=== PATIENT | male | born 1985 | race African-American/Black ===

== ENCOUNTER 2020-02-26 07:04 | Outpatient (NON) | payer OTHER, SELFPAY ==
[2020-02-26 18:37] LABS: SARS-CoV-2 RNA PCR Negative
== END 2020-02-26 07:05 ==
PROVIDERS: PCP Emergency Medicine; Visit Provider Emergency Medicine
DX: Z20.828 Contact with and (suspected) exposure to other viral communicable diseases (principal)
CPT/HCPCS: 87635; C9803; U0003

== ENCOUNTER 2020-10-29 00:54 | Emergency (ER) | payer OTHER, SELFPAY ==
[2020-10-29 01:02] VITALS: BP 168/112; PULSE 83; RESP 20; TEMP 37.2; O2SAT 98
--- NOTE | 2020-10-29 01:06 | ED.DENTAL ---
HPI - Dental/Oral General Chief complaint: Dental/Oral Stated complaint: tooth pain Time Seen by Provider: 10/29/20 00:56 Source: patient Mode of arrival: ambulatory Limitations: no limitations History of Present Illness HPI Narrative: This is a 35 year old male that presents to the ER for toothache x 2 days. Reports he recently had a root canal. Reports now the tooth next to the one that had the root canal is bothering him. He has been taking prescribed pain medication from the Dentist with little relief. Also reports he has been taking Amoxicillin as prescribed for the last couple of days. Reports redness and swelling in the area. Denies fever, dyspnea, or difficulty swallowing. MD Complaint: tooth pain Location: Tooth # (18) Related Data Allergies Allergy/AdvReac Type Severity Reaction Status Date / Time No Known Allergies Allergy Verified 07/28/19 11:42 Review of Systems Review of Systems: Narrative: CONSTITUTIONAL: Denies fever ENT: Reports dentalgia All systems reviewed & are unremarkable except as noted in HPI and below PMFSH Past Medical History Medical History (Updated 10/29/20 @ 01:29 by Chanel Ferris PA-C) HTN (hypertension) Inguinal hernia Surgical History Surgical History (Updated 07/28/19 @ 12:21 by Ezequiel Tate) Hx of foot surgery Hx of inguinal hernia repair Hx of shoulder surgery Hx of thumb surgery rt thumb Social History Social History (Updated 07/28/19 @ 12:21 by Ezequiel Tate) Smoking status: Never smoker Exam Narrative: Exam Narrative: GENERAL: Well-appearing, well-nourished, and in no acute distress. HEAD: Normocephalic, atraumatic. EYES: EOMI. ENT: Mucous membranes moist. Oropharynx without tonsillar hypertrophy exudate or other lesions. Bilateral TMs pearly mendez non-bulging. Tooth #18 tender palpation with mild to moderate surrounding erythema and edema. No obvious fluctuance. No trismus. Floor of mouth is soft NECK: Supple. No masses. Tender submandibular adenopathy CHEST: Clear to auscultation. No respiratory distress. No wheezes rales or rhonchi HEART: Regular rate and rhythm. No murmur heard. Normal peripheral pulses. EXTREMITIES: Normal range of motion. No edema. SKIN: Warm, dry, no rash. NEURO: No focal deficits. Alert and oriented x3. PSYCH: Normal mood and affect Course Vital Signs Vital signs: Vital Signs Temperature 99 F 10/29/20 01:02 Pulse Rate 83 10/29/20 01:02 Respiratory Rate 20 10/29/20 01:02 Blood Pressure 168/112 H 10/29/20 01:02 Pulse Oximetry 98 10/29/20 01:02 Temperature 99 F 10/29/20 01:02 Pulse Rate 83 10/29/20 01:02 Respiratory Rate 20 10/29/20 01:02 Blood Pressure 168/112 H 10/29/20 01:02 Pulse Oximetry 98 10/29/20 01:02 MDM - Dental/Oral MDM Narrative Medical decision making narrative: Patient presents to the ER for dental pain. Had recently had a root canal. He is afebrile and nontoxic-appearing. Presents today with some swelling and redness in the area. No overt fluctuance to suggest abscess. No trismus. Floor mouth is soft. Given a dose of IM Clindamycin in the ED. Will be started on oral clindamycin. Was instructed to follow-up with his dentist. He was given warnings to return to the ER Critical Care Time Critical Care Time Critical Care Time: No Discharge Plan Discharge Clinical Impression: Toothache Patient Disposition: Home, Self-Care Condition: Stable Instructions: Antibiotic Form, Toothache (ED) Additional Instructions: Return to the Emergency Department if you experience fever >101, increasing swelling and redness of your tooth, trouble swallowing, difficulty breathing, or any other symptoms that are concerning to you Stop Amoxicillin. Start Clindamycin. Tylenol or Ibuprofen as needed for pain. Prescribed pain medication as needed. Follow up with your dentist Prescriptions: New clindamycin HCl 300 mg capsule 300 mg PO Q6H 7 Days Qty: 28 RF: 0 hydro
[2020-10-29] MEDS: KETOROLAC (*BKC) 60 MG/2 ML VIAL IM (01:38)
[2020-10-29 02:36] VITALS: BP 159/91; PULSE 81; RESP 20; O2SAT 99
== END 2020-10-29 02:38 | disposition home or self-care (01) ==
PROVIDERS: Emergency Provider Emergency Medicine; PCP Emergency Medicine
DX: K08.89 Other specified disorders of teeth and supporting structures (principal); I10 Essential (primary) hypertension
CPT/HCPCS: 96372; 99284; A9270; J1885

== ENCOUNTER → 2021-04-21 03:32 | Outpatient (CLI) | payer OTHER, SELFPAY ==
[2021-04-21 19:19] LABS: SARS-CoV-2 RNA PCR Negative
== END ==
PROVIDERS: PCP Emergency Medicine; Visit Provider Emergency Medicine
DX: B34.9 Viral infection, unspecified (principal); Z20.822 Contact with and (suspected) exposure to COVID-19
CPT/HCPCS: C9803; U0003; U0005

== ENCOUNTER 2021-10-18 07:48 | Outpatient (CLI) | payer OTHER, SELFPAY ==
--- NOTE | ~2021-10-18 | MR_ITS ---
EXAMINATION: MR knee LT wo con DATE: 10/18/2021 08:35 INDICATION: Acute medial meniscus tear of left knee. TECHNIQUE: Magnetic resonance imaging (MRI) of the left knee was performed without intravenous contra st. Sequences included axial PD-weighted FS FSE, coronal PD-weighted FSE and PD-weighted FS FSE, sagi ttal PD-weighted FSE, and sagittal T2-weighted FS FSE. COMPARISON: None. FINDINGS: Medial compartment: There is a complex tear involving body and posterior horn of medial meniscus. There is partial-thickn ess cartilage loss of tibial condyle, deep at the medial articular surface where there is mild subcho ndral edema-like marrow signal intensity. There is partial-thickness cartilage loss of femoral condyl e, deep at the central, posterior, and medial articular surface. Osteophytes are noted. Lateral compartment: Lateral meniscus is normal. There is cartilage surface irregularity of tibial condyle. There is shall ow partial-thickness cartilage loss of femoral condyle, worst at the posterior articular surface. Ost eophytes are noted. Patellofemoral compartment: There is shallow partial-thickness cartilage loss of patella. There is deep abnormal signal intensity in patellar cartilage centered around the median ridge, consistent with softening. There is deep par tial thickness cartilage loss involving medial, central, and lateral trochlea. Osteophytes are noted. Ligaments and tendons: The anterior and posterior cruciate ligaments are normal. There are changes of prior sprains of media l collateral ligament and fibular collateral ligament characterized increased signal intensity. There is mild patellar tendinopathy. Fluid: There is a small knee joint effusion. IMPRESSION: 1. Moderate chondrosis of medial and patellofemoral compartments and mild chondrosis of lateral cecelia rtment. 2. Tear of medial meniscus. 3. Small knee joint effusion. Reviewed, dictated and finalized at location A. ATIC ART TEACHER IMPRESSION: 1. Moderate chondrosis of medial and patellofemoral compartments and mild chond rosis of lateral compartment. 2. Tear of medial meniscus. 3. Small knee joint effusion.
== END 2021-10-18 07:49 | disposition home or self-care (01) ==
PROVIDERS: PCP Emergency Medicine; Visit Provider Physician Assistant
DX: S83.242A Other tear of medial meniscus, current injury, left knee, initial encounter (principal); M25.462 Effusion, left knee
CPT/HCPCS: 73721

== ENCOUNTER 2021-11-02 09:32 | Outpatient (CLI) | payer OTHER, SELFPAY ==
[2021-11-02 10:04] LABS: Basophils Percent Auto 0.4 % (0.2-1.2); Eosinophils Absolute Auto 0.3 K/mm3 (0-0.3); Eosinophils Percent Auto 5.9 % (0-4.4); Hematocrit 47.6 % (42.0-52.0); Hemoglobin 17.1 g/dL (14.0-18.0); Immature Granulocyte Absolute 0.01 K/mm3 (0.00-0.031); Immature Granulocyte Percent A 0.2 % (0-0.5); Lymphocytes Absolute Auto 1.99 K/mm3 (0.9-3.2); Lymphocytes Percent Auto 43.4 % (18.3-44.2); Mean Corpuscular HGB Conc 35.9 g/dl (32-36); Mean Corpuscular Hemoglobin 35.4 pg (26-34); Mean Corpuscular Volume 98.6 fl (80-100); Mean Platelet Volume 9.8 fl (7.4-10.4); Monocytes Absolute Auto 0.4 K/mm3 (0.1-0.6); Monocytes Percent Auto 7.6 % (2.6-8.5); Neutrophils Percent Auto 42.5 % (45.5-73.1); Platelet Count Result 234 k/mm3 (150-375); Red Blood Count 4.83 M/mm3 (4.6-6.20); Red Cell Distribution Width 12.2 % (11.5-14.5); White Blood Count 4.6 K/mm3 (4.5-10.0)
[2021-11-02 10:13] LABS: Prothrombin Time 12.5 Seconds (11.1-14.7)
[2021-11-02 10:14] LABS: Partial Thromboplastin Time 29.2 SECONDS (22.3-36.8)
[2021-11-02 10:22] LABS: Alanine Aminotransferase 37 U/L (4-50); Albumin Level 4.8 g/dL (3.5-5.1); Alkaline Phosphatase 64 U/L (38-126); Anion Gap 9 mmol/L (8-16); Aspartate Amino Transferase 50 U/L (17-59); Bilirubin,Total 0.9 mg/dL (0.2-1.3); Blood Urea Nitrogen 14 mg/dL (9-20); Calcium 9.7 mg/dL (8.4-10.2); Carbon Dioxide 27 mmol/L (22-30); Chloride 103 mmol/L (98-107); Cholesterol 265 mg/dL (0-200); Estimated Glomerular Filt Rate > 60; Glucose 98 mg/dL (65-110); HDL Direct 49 mg/dL; Magnesium 1.9 mg/dL (1.6-2.3); Phosphorus 3.6 mg/dL (2.5-4.5); Potassium 3.7 mmol/L (3.4-5.0); Sodium 139 mmol/L (137-145); Triglycerides 348 mg/dL (<150)
[2021-11-02 10:33] LABS: LDL Cholesterol Direct 141 mg/dL
[2021-11-02 11:07] LABS: Add Urine Microscopic? NO; Appearance Urine Clear (Clear); Bilirubin Urine Negative (Negative); Blood Urine Negative (Negative); Color Urine Yellow (Yellow); Glucose Urine UA Negative (Negative); Ketones Urine Negative (Negative); Leukocyte Esterase Ur Negative LEU/UL (Negative); Nitrate Urine Negative (Negative); Protein Urine Negative (Negative); Urobilinogen Urine Negative mg/dL (<2.0)
[2021-11-02 11:22] LABS: Folic Acid 5.2 ng/mL (2.76->20)
== END 2021-11-02 09:33 | disposition home or self-care (01) ==
LOC: ANHLAB 09:41
PROVIDERS: PCP Emergency Medicine; Visit Provider Emergency Medicine
DX: Z01.812 Encounter for preprocedural laboratory examination (principal); K21.9 Gastro-esophageal reflux disease without esophagitis; N28.9 Disorder of kidney and ureter, unspecified; I10 Essential (primary) hypertension
CPT/HCPCS: 36415; 80061; 80069; 80076; 81003; 82607; 82746; 83735; 84443; 85025; 85610; 85730

== ENCOUNTER 2022-07-23 22:30 | Emergency (ER) | payer OTHER, SELFPAY ==
--- NOTE | ~2022-07-23 | XR_ITS ---
EXAMINATION: XR chest 2V 07/23/2022 23:10 INDICATION: Chest tightness PROCEDURE: 03/05/2018 COMPARISON: 03/05/2018 FINDINGS: The lungs are clear. The cardiomediastinal silhouette is within normal limits. There are no pleural effusions. There is no pneumothorax suspected. IMPRESSION: 1: NO ACUTE CARDIOPULMONARY DISEASE. Reviewed, dictated and finalized at location A. INTERFACE DESIGNER
--- NOTE | ~2022-07-23 | CT_ITS ---
EXAMINATION: CTA chest PE abdomen pel DATE: 07/24/2022 00:06 INDICATION: Chest and abdominal pain TECHNIQUE: Computed tomography angiography (CTA) of the chest, abdomen and pelvis was performed with 100 mL Omnipaque-350 intravenous contrast timed to evaluate the pulmonary arteries. Coronal maximum i ntensity projection 3D-reconstructions were created by the technologist. Automated exposure control a nd iterative reconstruction technique were employed. Exam dose: 1995.99 mGy-cm total exam DLP. COMPARISON: 07/2022 2 view chest 07/28/2019 right upper quadrant abdominal ultrasound examination FINDINGS: CHEST: There is limited opacification of the pulmonary arteries. Examination is limited by patient mo tion. No pulmonary infiltrate or consolidation or suspicious pulmonary mass lesion is noted. There is no evidence of thoracic aortic aneurysm or dissection. Normal heart size. No pericardial or pleural effusion. No hilar or mediastinal mass lesion or lymphadenopathy. Included skeletal structures are unremarkable. ABDOMEN: The liver, gallbladder, bile ducts, pancreatic duct and pancreas as well and spleen are unre markable. Normal morphology of the adrenal glands. Occasional small bilateral renal cysts, the largest situated on the right, measuring up to 12 mm maxi mal dimension. No urinary tract calculus or hydroureteronephrosis. The urinary bladder, prostate gland are unremarka ble. Normal caliber of the abdominal aorta. No intraperitoneal or retroperitoneal or pelvic mass lesi on or adenopathy or ascites. Bilateral small fat-containing inguinal hernias. Normal appendix. No bowel obstruction, bowel wall thickening, pneumatosis or intraperitoneal free air . No suspicious osteolytic or osteoblastic lesions. IMPRESSION: Occasional bilateral renal cysts Small bilateral fat-containing inguinal hernias Reviewed, dictated and finalized at Location A. Reviewed, dictated and finalized at location B. HASING ADMINISTRATOR
--- NOTE | 2022-07-23 22:31 | ECG_ITS ---
Measurements Intervals [place] Rate: 86 P: 13 CA: 198 QRS: -51 QRSD: 96 T: 21 QT: 365 QTc: 437 Interpretive Statements SINUS RHYTHM SEPTAL MYOCARDIAL INFARCTION , OF INDETERMINATE AGE [40+ ms Q WAVE IN V1/V2] INFERIOR MYOCARDIAL INFARCTION , PROBABLY OLD [40+ ms Q WAVE AND/OR ST/T ABNORMALITY IN II/aVF] NO PREVIOUS ECG AVAILABLE FOR COMPARISON Electronically Signed On 07-24-2022 11:19:25 PINKING SEWING MACHINE OPERATOR by Nisreen Alejo M.D.
[2022-07-23 22:35] VITALS: BP 153/110; PULSE 76; RESP 22; TEMP 36.8; O2SAT 96
[2022-07-23 22:37] VITALS: O2SAT 99
[2022-07-23 23:18] LABS: Basophils Percent Auto 0.4 % (0.2-1.2); Eosinophils Absolute Auto 0.3 K/mm3 (0-0.3); Eosinophils Percent Auto 3.6 % (0-4.4); Hemoglobin 17.6 g/dL (14.0-18.0); Immature Granulocyte Absolute 0.01 K/mm3 (0.00-0.031); Immature Granulocyte Percent A 0.1 % (0-0.5); Lymphocytes Absolute Auto 3.09 K/mm3 (0.9-3.2); Lymphocytes Percent Auto 41.7 % (18.3-44.2); Mean Corpuscular HGB Conc 35.2 g/dl (32-36); Mean Corpuscular Hemoglobin 35.3 pg (26-34); Mean Corpuscular Volume 100.2 fl (80-100); Mean Platelet Volume 9.8 fl (7.4-10.4); Monocytes Absolute Auto 0.7 K/mm3 (0.1-0.6); Monocytes Percent Auto 9.6 % (2.6-8.5); Neutrophils Absolute Auto 3.3 K/mm3 (1.3-6.7); Neutrophils Percent Auto 44.6 % (45.5-73.1); Platelet Count Result 294 k/mm3 (150-375); Red Blood Count 4.99 M/mm3 (4.6-6.20); Red Cell Distribution Width 12.4 % (11.5-14.5); White Blood Count 7.4 K/mm3 (4.5-10.0)
[2022-07-23 23:20] VITALS: BP 143/92; PULSE 80; RESP 16; O2SAT 97
[2022-07-23 23:29] LABS: Prothrombin Time 12.7 Seconds (11.1-14.7)
[2022-07-23 23:30] LABS: Partial Thromboplastin Time 31.4 SECONDS (22.3-36.8)
[2022-07-23 23:31] VITALS: PULSE 84
[2022-07-23 23:33] LABS: Alanine Aminotransferase 52 U/L (6-50); Albumin Level 5.3 g/dL (3.5-5.1); Alkaline Phosphatase 65 U/L (38-126); Anion Gap 9 mmol/L (8-16); Aspartate Amino Transferase 50 U/L (17-59); Bilirubin,Total 0.7 mg/dL (0.2-1.3); Blood Urea Nitrogen 18 mg/dL (9-20); Calcium 9.7 mg/dL (8.4-10.2); Carbon Dioxide 32 mmol/L (22-30); Chloride 96 mmol/L (98-107); Estimated CRCL calculation 88 ml/min; Estimated Glomerular Filt Rate > 60; Glucose 94 mg/dL (65-110); Lipase 60 U/L (23-300); Potassium 3.5 mmol/L (3.4-5.0); Sodium 137 mmol/L (137-145)
--- NOTE | 2022-07-23 23:33 | ED.GENADULT ---
HPI - General Adult General Chief complaint: Chest Pain Stated complaint: Chest tightness, abd pain, rib tenderness Time Seen by Provider: 07/23/22 22:41 History of Present Illness HPI narrative: Patient is a 37-year-old gentleman who presents emerged part with chief complaint of chest and abdominal pain. The patient reports that he had an episode today of pain in the left side of his chest the patient reports that he get a little diaphoretic with it patient reports that he has had a uncomfortable feeling in his upper abdomen and chest wall that feels as though others are pressure-like sensation or fullness. Patient states that the pain is not improved by anything and reports that this has been ongoing for several days. The patient does report these had a bit of nausea. Patient reports the pain in his chest is resolved Related Data Allergies Allergy/AdvReac Type Severity Reaction Status Date / Time No Known Allergies Allergy Verified 10/29/20 02:37 Review of Systems Review of Systems: A 10 system review of systems was completed on the patient and is negative except for what is stated in the HPI. Nursing and ancillary documentation was reviewed. PMFSH Past Medical History Medical History HTN (hypertension) Inguinal hernia Surgical History Surgical History Hx of foot surgery Hx of inguinal hernia repair Hx of shoulder surgery Hx of thumb surgery rt thumb Social History Social History Smoking status: Never smoker Exam Narrative: GENERAL: Well-appearing, well-nourished, and in no acute distress. HEAD: Normocephalic, atraumatic. EYES: PERRLA and EOMI. ENT: Nares clear, no rhinorrhea or epistaxis. Mucous membranes moist. NECK: Supple. CHEST: Clear to auscultation. No respiratory distress. HEART: Regular rate and rhythm. No murmur heard. Normal peripheral pulses. ABDOMEN: Soft, nontender, nondistended, normal active bowel sounds. EXTREMITIES: Normal range of motion. No edema. SKIN: Warm, dry, no rash. NEURO: No focal deficits. Alert and oriented x3. PSYCH: Normal mood and affect. Course Course Emergency Course: CTA chest showed no evidence of pulmonary embolism. CT abdomen pelvis showed no evidence of acute abdominal pathology. EKG showed sinus rhythm rate of [address] elevation or ST depression Vital Signs Vital signs: Vital Signs Temperature 36.8 C 07/23/22 22:35 Pulse Rate 76 07/23/22 22:35 Respiratory Rate 22 H 07/23/22 22:35 Blood Pressure 153/110 H 07/23/22 22:35 Pulse Oximetry 96 07/23/22 22:35 Oxygen Delivery Room Air 07/23/22 22:35 Temperature 36.8 C 07/23/22 22:35 Pulse Rate 84 07/23/22 23:31 Respiratory Rate 16 07/23/22 23:20 Blood Pressure 143/92 H 07/23/22 23:20 Pulse Oximetry 97 07/23/22 23:20 Oxygen Delivery Room Air 07/23/22 22:35 Medical Decision Making Vital Signs Vital Signs: Vital Signs Temperature 36.8 C 07/23/22 22:35 Pulse Rate 76 07/23/22 22:35 Respiratory Rate 22 H 07/23/22 22:35 Blood Pressure 153/110 H 07/23/22 22:35 Pulse Oximetry 96 07/23/22 22:35 Oxygen Delivery Room Air 07/23/22 22:35 Temperature 36.8 C 07/23/22 22:35 Pulse Rate 84 07/23/22 23:31 Respiratory Rate 16 07/23/22 23:20 Blood Pressure 143/92 H 07/23/22 23:20 Pulse Oximetry 97 07/23/22 23:20 Oxygen Delivery Room Air 07/23/22 22:35 Lab Data 07/23/22 22:59 07/23/22 22:59 Labs: Lab Results 07/23/22 07/23/22 07/23/22 Range/Units 22:59 22:59 22:59 WBC 7.4 (4.5-10.0) K/mm3 RBC 4.99 (4.6-6.20) M/mm3 Hgb 17.6 (14.0-18.0) g/dL Hct 50.0 (42.0-52.0) % MCV 100.2 H (80-100) fl MCH 35.3 H (26-34) pg MCHC 35.2 (32-36) g/dl RDW 12.4 (11.5-14.5) % Plt Count 294
[2022-07-23 23:43] LABS: Troponin I < 0.012 ng/mL (0.000-0.034)
[2022-07-24 01:43] VITALS: BP 141/95; PULSE 77; RESP 18; O2SAT 98
== END 2022-07-24 01:45 | disposition home or self-care (01) ==
PROVIDERS: Emergency Provider Emergency Medicine; PCP Emergency Medicine
DX: R07.89 Other chest pain (principal); R10.13 Epigastric pain; I10 Essential (primary) hypertension; R94.31 Abnormal electrocardiogram [ECG] [EKG]
CPT/HCPCS: 36415; 71046; 71275; 74177; 80053; 83690; 84484; 85025; 85610; 85730; 93005; 99284; Q9967

== ENCOUNTER 2023-10-23 15:02 | Emergency (ER) | payer OTHER, SELFPAY ==
[2023-10-23 15:18] VITALS: BP 161/100; PULSE 97; RESP 16; TEMP 36.2; O2SAT 98
--- NOTE | 2023-10-23 16:23 | ED.ABDPAIN ---
HPI - Abdominal Pain General Chief Complaint: Abdominal Pain Stated Complaint: abd pain Time Seen by Provider: 10/23/23 16:23 Source: patient Mode of arrival: ambulatory Limitations: no limitations History of Present Illness HPI narrative: Griffin is a 38-year-old male patient presenting to the clinic today with complaints of possible worms in his stool. States that 2 weeks ago he accidentally ate some raw pork. Today he had a bowel movement and noticed a possible forearm in his stool about the size of an eyelash. He denies any bloody stools, abdominal pain, nausea, vomiting, or diarrhea. Denies any weight loss. No fever or chills. He denies any other concerns at this time. Related Data Allergies Allergy/AdvReac Type Severity Reaction Status Date / Time No Known Allergies Allergy Verified 10/29/20 02:37 Review of Systems Review of Systems: Pertinent positives per HPI. Patient denies any fever, chills, rash, headache, visual changes, dizziness, cough, runny nose, sore throat, shortness of breath, chest pain, palpitations, nausea, vomiting, diarrhea, constipation, abdominal pain, or any urinary issues. PMFSH Past Medical History Medical History HTN (hypertension) Inguinal hernia Surgical History Surgical History Hx of foot surgery Hx of inguinal hernia repair Hx of shoulder surgery Hx of thumb surgery rt thumb Social History Social History Smoking status: Never smoker Comments At the time of my signature, I reviewed and agree with the nursing past medical, surgical, social, and family history. There is no relevant family history pertinent to the patient complaint. Exam Narrative: General: Well-developed, well nourished, in no apparent distress. Head: Normocephalic, atraumatic. Cardio: Regular rate and rhythm, s1 and s2 normal, no murmur appreciated. Resp: Clear to auscultation bilaterally, no rhonchi, rales, wheezing or rubs. Abdomen: Soft, pliable, bowel sounds present in all quadrants, non-tender to palpation, no organomegly, no CVAT tenderness. Course Course Emergency Course: Portions of this record may have been created with voice recognition software. Vital Signs Vital signs: Vital Signs Temperature 36.2 C L 10/23/23 15:18 Pulse Rate 97 10/23/23 15:18 Respiratory Rate 16 10/23/23 15:18 Blood Pressure 161/100 H 10/23/23 15:18 Pulse Oximetry 98 10/23/23 15:18 Temperature 36.2 C L 10/23/23 15:18 Pulse Rate 97 10/23/23 15:18 Respiratory Rate 16 10/23/23 15:18 Blood Pressure 161/100 H 10/23/23 15:18 Pulse Oximetry 98 10/23/23 15:18 Vital signs reviewed MDM - Abdominal Pain MDM Narrative Medical decision making narrative: At the time of visit patient is resting comfortably on the exam table. Patient appears to be nontoxic. Labs: Ova and parasites stool sample ordered Plan: Will send stool sample to the lab for ova and parasites testing. Recommend follow-up with the PCP for results and treatment. Supportive measures were discussed with the patient and they voiced understanding discharge instructions and agrees to treatment plan. Return precautions reviewed Differential Diagnosis Differential diagnosis: Likely abdominal pain and other (Parasite in stool) Discharge Plan Discharge Clinical Impression: Presence of parasites in stool Patient Disposition: Home, Self-Care Condition: Stable Instructions: Antibiotic Form Additional Instructions: Will send stool sample to lab to test for parasites Increase fluids and stay well hydrated Follow-up with your primary care doctor this week for results/treatment if positive Prescriptions: No Action pantoprazole [Protonix] 40 mg tablet,delayed release (DR/EC) 40 mg PO HS Qty: 14 0RF pantoprazole [
[2023-10-23 16:35] VITALS: BP 140/86; PULSE 68; RESP 16; TEMP 36.7; O2SAT 100
== END 2023-10-23 16:56 | disposition home or self-care (01) ==
LOC: ANHED 16:50
PROVIDERS: Emergency Provider Nurse Practitioner Family; PCP Emergency Medicine
DX: B82.9 Intestinal parasitism, unspecified (principal); I10 Essential (primary) hypertension
CPT/HCPCS: 87177; 87209; 99283